=== PATIENT | female | born 1965 | race Caucasian/White ===

== ENCOUNTER 2020-07-26 18:01 | Emergency (ER) | payer OTHER, MEDICARE ==
[2020-07-26 18:34] LABS: HEMOGLOBIN 13.9 gm/dl (12.3-15.3); RED BLOOD COUNT 4.23 M/UL (4.00-5.10); WHITE BLOOD COUNT 11.6 K/UL (4.5-11.0)
[2020-07-26 18:52] LABS: BUN/CREATININE RATIO 9 (0-10)
[2020-07-26] MEDS ORDERED: IBUPROFEN600 MG PO (21:03)
== END 2020-07-26 21:10 | disposition home or self-care (01) ==
LOC: ER1 18:01
PROVIDERS: Emergency Medicine
DX: S10.93XA Contusion of unspecified part of neck, initial encounter (principal); S20.222A Contusion of left back wall of thorax, initial encounter; S80.11XA Contusion of right lower leg, initial encounter; R10.9 Unspecified abdominal pain; J44.9 Chronic obstructive pulmonary disease, unspecified; F17.200 Nicotine dependence, unspecified, uncomplicated; Z23 Encounter for immunization; V49.50XA Passenger injured in collision with unspecified motor vehicles in traffic accident, initial encounter; Y92.410 Unspecified street and highway as the place of occurrence of the external cause
CPT/HCPCS: 70450; 71045; 71260; 72125; 72170; 80053; 83605; 83690; 85025; 85610; 85730; 86850; 86900; 86901; 90471; 90715; 99284; G0480; Q9967